=== PATIENT | male | born 1945 | race Caucasian/White ===

== ENCOUNTER 2017-08-19 12:06 | Emergency (ER) | payer OTHER ==
[~2017-08-19] VITALS: Ht 172.7 cm; Wt 86.2 kg
[~2017-08-19 12:06] MED LIST: ASPIR 8181 MG PO; HYZAAR 100-121 UDTAB PO; LANTUS100 U/ML SQ
== END 2017-08-19 14:45 | disposition home or self-care (01) ==
LOC: ER 12:06
DX: L02.413 Cutaneous abscess of right upper limb (principal)